=== PATIENT | female | born 1965 | race Caucasian/White ===

== ENCOUNTER 2024-02-03 12:41 | Emergency (ER) | payer OTHER ==
[~2024-02-03] VITALS: Ht 160 cm; Wt 63.5 kg
[2024-02-03 12:59] VITALS: BP 141/82; TEMP 98.1; O2SAT 99
== END 2024-02-03 14:00 | disposition left against medical advice (07) ==
LOC: ER 12:45
DX: R51.9 Headache, unspecified (principal); F10.129 Alcohol abuse with intoxication, unspecified; Z53.21 Procedure and treatment not carried out due to patient leaving prior to being seen by health care provider; Y08.89XA Assault by other specified means, initial encounter; Y93.89 Activity, other specified; Y92.89 Other specified places as the place of occurrence of the external cause; Y99.8 Other external cause status